=== PATIENT | male | born 1965 | race African-American/Black ===

== ENCOUNTER 2017-04-14 19:11 | Emergency (ER) | payer OTHER ==
[2017-04-14 20:26] LABS: INFLUENZA A PATIENT NEGATIVE (NEGATIVE); INFLUENZA B PATIENT NEGATIVE (NEGATIVE); OBC FLU VALID
[2017-04-14 21:21] LABS: POC GLUCOSE 123 mg/dL (70-99)
== END 2017-04-14 21:33 | disposition home or self-care (01) ==
LOC: ER 19:11
DX: J20.9 Acute bronchitis, unspecified (principal); E11.9 Type 2 diabetes mellitus without complications; F17.200 Nicotine dependence, unspecified, uncomplicated
CPT/HCPCS: 71046; 82962; 87804; 87804-59; 99285-25

== ENCOUNTER 2020-12-12 11:38 | Emergency (ER) | payer OTHER ==
[~2020-12-12] VITALS: Ht 170.2 cm; Wt 86.7 kg
[~2020-12-12 11:38] MED LIST: BENZ100C PO; PRED50TA PO; PROAIR RESPICL90 MCG IH
[2020-12-12] MEDS ORDERED: ASPIRIN CHEWABLE 81 MG TABLET. PO ONE (12:00)
[2020-12-12] MEDS ORDERED: IV NORMAL SALINE 1000ML BAG 1,000 ML IV SCH (12:00)
[2020-12-12 12:21] LABS: BASO % 0 % (0-3); EOS # 0.1 x10^3/uL (0.0-0.7); EOS % 1 % (0-3); HEMATOCRIT 38.7 % (39.0-53.0); HEMOGLOBIN 13.7 g/dL (13.0-17.5); LYMPH # 3.4 x10^3/uL (1.0-4.8); LYMPH % 37 % (24-48); MEAN CORPUSCULAR HEMOGLOBIN 30 pg (25-35); MEAN CORPUSCULAR HGB CONC 36 g/dL (31-37); MEAN CORPUSCULAR VOLUME 85 fL (79-100); MONO # 0.6 x10^3/uL (0.0-1.1); MONO % 7 % (0-9); NEUT # 5.1 x10^3/uL (1.8-7.7); NEUT % 55 % (31-73); PLATELET COUNT 260 x10^3/uL (140-400); RED BLOOD COUNT 4.54 x10^6/uL (4.30-5.70); WHITE BLOOD COUNT 9.3 x10^3/uL (4.0-11.0)
--- NOTE | 2020-12-12 12:27 | EKG ---
[facility] [address] [place] [address] Test Date: 2020-12-12 Test Time: 11:49:53 Pat Name: KWESI BURNETT Department: Room: Gender: Corporate Accountant: : 1965 Requested By: LEANDRA BEST Order Number: [id number] Reading MD: Measurements Intervals [place] Rate: 56 P: 49 RI: 150 QRS: 29 QRSD: 88 T: 34 QT: 396 QTc: 384 Interpretive Statements SINUS RHYTHM OTHERWISE NORMAL ECG RI6.02 No previous ECG available for comparison
--- NOTE | 2020-12-12 12:28 | RAD ---
XR CHEST 1V History: Reason: soa / Spl. Instructions: / History: Comparison: April 14, 2017 Findings: No consolidation or pleural effusion. Normal heart size. No pneumothorax. Prior granulomatous disease within the chest. Impression: 1. No acute cardiopulmonary process. Electronically signed by: Charles Verduzco DO (12/12/2020 12:25 PM) [id number]
[2020-12-12 12:29] LABS: CALCIUM 8.7 mg/dL (8.5-10.1); CREATININE 0.8 mg/dL (0.7-1.3); GFR 122.4; POTASSIUM 3.8 mmol/L (3.5-5.1)
--- NOTE | 2020-12-12 12:32 | PHYS DOC ---
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 He states that his doctor told him that the tingling in his left arm that comes and states that is from him putting his left arm up on the window sill of the truck. Patient is fully vaccinated for Covid. He has a history of diabetes, hypertension smoking. He does take a baby aspirin every day. He denies syncope, chest pain, abdominal pain, nausea, v omiting, diarrhea, fever, cough, focal weakness, vision change. (LEANDRA BEST SPRAY UNIT FEEDER) Review of Systems: Review of Systems: Constitutional: Denies fever or chills. [] Eyes: Denies change in visual acuity. [] HENT: Denies nasal congestion or sore throat. [] Respiratory: Denies cough or + Intermittent shortness of breath. [] Cardiovascular: Denies chest pain or edema. [] GI: Denies abdominal pain, nausea, vomiting, bloody stools or diarrhea. [] : Denies dysuria. [] Musculoskeletal: Denies back pain or joint pain. [] Integument: Denies rash. [] Neurologic: Denies headache, focal weakness or +intermittent left arm sensory changes. +intermittent dizziness [] Endocrine: Denies polyuria or polydipsia. [] Lymphatic: Denies swollen glands. [] Psychiatric: Denies depression or anxiety. [] (LEANDRA BEST SPRAY UNIT FEEDER) Heart Score: C/O Chest Pain: No HEART Score for Chest Pain: HEART Score for Chest Pain Response (Comments) Value History Slighlty/Non-Suspicious 0 ECG Normal 0 Age >45 - < 65 1 Risk Factors 1 or 2 Risk Factors 1 Troponin < Normal Limit 0 Total 2 Risk Factors: Risk Factors: DM, Current or recent (<one month) smoker, HTN, HLP, family history of CAD, obesity. Risk Scores: Score 0 - 3: 2.5% MACE over next 6 weeks - Discharge Home Score 4 - 6: 20.3% MACE over next 6 weeks - Admit for Clinical Observation Score 7 - 10: 72.7% MACE over next 6 weeks - Early Invasive Strategies (LEANDRA BEST APRN) Current Medications: Current Medications Medications (Trade) Dose Ordered Sig/Erick Start Time Stop Time Status Last Admin Dose Admin Aspirin (Aspirin Chewable) 324 mg 1X ONCE 12/12/20 12:00 12/12/20 12:01 DC Sodium Chloride 1,000 ml @ 1,000 mls/hr Q1H 12/12/20 12:00 12/12/20 12:59 (LEANDRA BEST APRN) Allergies: Allergies: Allergies Coded Allergies Type Severity Reaction Last Updated Verified No Known Drug Allergies 12/12/20 No (LEANDRA BEST APRN) Physical Exam: PE: Constitutional: Well developed, well nourished, no acute distress, non-toxic appearance. [] HENT: Normocephalic, atraumatic, bilateral external ears normal, oropharynx moist, no oral exudates, nose normal. [] Eyes: PERRLA, EOMI, conjunctiva normal, no discharge. [] Neck: Normal range of motion, no tenderness, supple, no stridor. [] Cardiovascular:Heart rate regular rhythm, no murmur [] Lungs & Thorax: Bilateral breath sounds clear to auscultation [] Abdomen: Bowel sounds normal, soft, no tenderness, no masses, no pulsatile masses. [] Skin: Warm, dry, no erythema, no rash. [] Back: No tenderness, no CVA tenderness. [] Extremities: No tenderness, no cyanosis, no clubbing, ROM intact, no edema. [] Neurologic: Alert and oriented X 3, normal motor function, normal sensory function, no focal deficits noted. [] Psychologic: Affect normal, judgement normal, mood normal. [] Normal physical exam (LEANDRA BEST APRN) Current Patient Data: Labs: Laboratory Tests Test 12/12/20 11:57 Glucose (Fingerstick) 117 mg/dL (70-99) H Vital Signs: Vital Signs Date Time Temp Pulse Resp B/P (MAP) Pulse Ox O2 Delivery O2 Flow Rate FiO2 12/12/20 11:41 98.3 65 16 140/85 (103) 98 Room Air 98.3 (LEANDRA BEST APRN) EKG: EK and read by Dr. Teague is sinus rhythm and no STEMI [address] Teague as sinus rhythm and no STEMI (LEANDRA BEST APRN) Radiology/Procedures: Radiology/Procedures: [] Impression: [place] [id number] IMAGING REPORT Signed PATIENT: KWESI BURNETT ACCOUNT: [id number] : 1965 LOCATION: ER AGE: 55 SEX: M EXAM STATUS: REG ER ORD. PHYSICIAN: LEANDRA BEST APRN REASON: soa PROCEDURE: PORTABLE CHEST 1V XR CHEST 1V History: Reason: soa / Spl. Instructions: / History: Comparison: April 14, 2017 Findings: No consolidation or pleural effusion. Normal heart size. No pneumothorax. Prior granulomatous disease within the chest. Impression: 1. No acute cardiopulmonary process. Electronically signed by: Charles Verduzco DO (12/12/2020 12:25 PM) [id number] DICTATED and SIGNED BY: CHARLES VERDUZCO DO DATE: 12/12/20 [id number] [place] [id number] IMAGING REPORT Signed PATIENT: KWESI BURNETT ACCOUNT: [id number] : 1965 LOCATION: ER AGE: 55 SEX: M EXAM STATUS: REG ER ORD. PHYSICIAN: LEANDRA BEST APRN REASON: dizziness PROCEDURE: CT HEAD WO CONTRAST CT HEAD/BRAIN WO History: Reason: dizziness / Spl. Instructions: / History: Comparison: None. Technique: Noncontrast CT imaging was performed of the head. Exposure: One or more of the following individualized dose reduction techniques were utilized for this examination: 1. Automated exposure control 2. Adjustment of the mA and/or kV according to patient size 3. Use of iterative reconstruction technique. Findings: No intracranial hemorrhage. No mass effect. No hydrocephalus. Right lateral scalp soft tissue injury. Imaged orbits are unremarkable. Imaged paranasal sinuses and mastoid air cells are clear. No acute calvarial fracture. Impression: 1. No acute intracranial abnormality. Electronically signed by: Charles Verduzco DO (12/12/2020 1:08 PM) [id number] DICTATED and SIGNED BY: CHARLES VERDUZCO DO DATE: 12/12/20 [id number] (LEANDRA BEST APRN) Course & Med Decision Making: Course & Med Decision Making Pertinent Labs and Imaging studies reviewed. (See chart for details) COVID-19 CRITERIA: The patient was evaluated during the global COVID-19 pandemic, and that diagnosis was suspected/considered upon their initial presentation. Their evaluation, treatment and testing was consistent with curr ent guidelines for patients who present with complaints or symptoms that may be related to COVID-19. See HPI. Alert and oriented x4. Ambulatory steady gait. Speaks in full clear sentences. Skin pink warm and dry. No extremity edema. Lab signs are within normal limits. Lungs are clear to auscultation all lobes. No joint laxity or swelling. Full range of motion and strength in all extremities. Full sensations. Radial pulse strong and present. Cap refill less than 2 seconds. Chest x-ray, CT of head showed no acute findings. He denies having ever hit his head. Blood work is unremarkable. Heart score is only 2. Rapid Covid is negative. [] (LEANDRA BEST APRN) Course & Med Decision Making I have reviewed and was available for consultation in the emergency department for this patient that was seen by midlevel provider. Agree with plan. Alan Teague DO (ALAN TEAGUE DO) Leanne Disclaimer: Leanne Disclaimer: This electronic medical record was generated, in whole or in part, using a voice recognition dictation system. (LEANDRA BEST APRN) NIHSS Stroke Scale NIH Stroke Scale: NIH Stroke Scale Response (Comments) Value Level of Consciousness: 0 Alert/Responsive 0 LOC Questions: 0 Answers both correctly 0 LOC Commands: 0 Performs both tasks 0 Best Gaze: 0 Normal 0 Visual: 0 No visual loss 0 Facial Palsy: 0 Normal, symmetrical 0 Motor - Left Arm 0 No drift 0 Motor - Right Arm 0 No drift 0 Motor - Left Leg 0 No drift 0 Motor: Right Leg 0 No drift 0 Limb Ataxia: 0 Absent 0 Sensory: 0 No loss 0 Best Language: 0 Normal 0 Dysathria: 0 Normal 0 Extinction and Inattention: 0 Normal 0 Total 0 COVID-19 Patient Risks: Age 65 or older: No Sign of co-morbidity: Yes Exp to person + for COVID: No Travel from affected area: Yes Lower respiratory symptoms: Yes Fever: No Other: No (LEANDRA BEST APRN) PPE Use: Full PPE with N95 mask or PAPR: Yes (LEANDRA BEST APRN) Departure Departure Impression: Primary Impression: Shortness of breath Additional Impression: Neuropathy, arm Qualified Codes: G56.92 - Unspecified mononeuropathy of left upper limb Disposition: HOME / SELF CARE / HOMELESS Condition: STABLE Referrals: UNKNOWN PCP NAME (PCP) Patient Instructions: Asthma, Adult, Ulnar Nerve Contusion with Rehab[facility] Additional Instructions: Drink plenty of fluids. Stop smoking. Continue taking all medication. Try not to set your arm up on window sill of your truck when driving. Try using lidocaine patches to the area of pain to the arm. Scripts Lidocaine (Lidocaine PATCH ) 1 Each Adh..patch 1 EACH TP DAILY for FOR LOCAL PAIN, #1 PATCH REMOVE AFTER 12 HOURS Prov: LEANDRA BEST APRN 12/12/20 Albuterol Sulfate (PROAIR HFA INHALER) 8.5 Gm Hfa.aer.ad 1 PUFF INH PRN Q6HRS PRN for SHORTNESS OF BREATH, #1 EACH 0 Refills Prov: LEANDRA BEST APRN 12/12/20 LEANDRA BEST APRN Dec 12, 2020 12:32 ALAN TEAGUE DO Dec 12, 2020 13:45
[2020-12-12 12:35] LABS: ALBUMIN 3.7 g/dL (3.4-5.0); ALBUMIN/GLOBULIN RATIO 1.1 (1.0-1.7); MAGNESIUM 1.8 mg/dL (1.8-2.4); TOTAL BILIRUBIN 0.6 mg/dL (0.2-1.0); TOTAL PROTEIN 7.2 g/dL (6.4-8.2)
--- NOTE | 2020-12-12 13:10 | RAD ---
CT HEAD/BRAIN WO History: Reason: dizziness / Spl. Instructions: / History: Comparison: None. Technique: Noncontrast CT imaging was performed of the head. Exposure: One or more of the following individualized dose reduction techniques were utilized for thi s examination: 1. Automated exposure control 2. Adjustment of the mA and/or kV according to patient size 3. Use of iterative reconstruction technique. Findings: No intracranial hemorrhage. No mass effect. No hydrocephalus. Right lateral scalp soft tissue injury. Imaged orbits are unremarkable. Imaged paranasal sinuses and mastoid air cells are clear. No acute ca lvarial fracture. Impression: 1. No acute intracranial abnormality. Electronically signed by: Charles Verduzco DO (12/12/2020 1:08 PM) [id number]
[2020-12-12] MEDS ORDERED: ALBU2.5V8 INH (13:24)
[2020-12-12] MEDS ORDERED: LIDO700A21 TP (13:24)
[2020-12-12 14:08] LABS: BILIRUBIN,URINE NEGATIVE (NEG); CLARITY,URINE CLEAR; COLOR,URINE YELLOW; NITRITE,URINE NEGATIVE (NEG); PROTEIN,URINE NEGATIVE (NEG-TRACE); UROBILINOGEN,URINE 0.2 mg/dL (0.2 mg/dL)
--- NOTE | 2020-12-12 14:08 | EKG ---
[facility] [address] [place] [address] Test Date: 2020-12-12 Test Time: 12:33:15 Pat Name: KWESI BURNETT Department: Room: Gender: Budget Controller: : 1965 Requested By: LEANDRA BEST Order Number: [id number] Reading MD: Measurements Intervals [place] Rate: 54 P: 52 RI: 158 QRS: 33 QRSD: 88 T: 53 QT: 412 QTc: 392 Interpretive Statements SINUS RHYTHM NO SPECIFIC ECG ABNORMALITIES RI6.01 No previous ECG available for comparison
[2020-12-12 14:14] LABS: BARBITURATES NEG (NEG); BENZODIAZEPINES NEG (NEG); CANNABINOIDS NEG (NEG); COCAINE NEG (NEG); METHADONE NEG (NEG); OPIATES NEG (NEG); PHENCYCLIDINE NEG (NEG)
[2020-12-12 14:15] LABS: AMPHETAMINE/METHAMPHETAMINE NEG (NEG)
[2020-12-12 14:16] VITALS: BP 122/66
[2020-12-12 14:39] LABS: BACTERIA,URINE 0 /HPF (0-FEW); RBC,URINE 0 /HPF (0-2)
--- NOTE | 2020-12-13 15:58 | NUR ---
IP: Attempted to contact pt concerning covid results. No answer, left a voicemail to return then call.
--- NOTE | 2020-12-15 15:20 | NUR ---
IP: Informed pt of negative covid test. Pt verbalized understanding.
== END 2020-12-12 15:01 | disposition home or self-care (01) ==
LOC: ER 11:38
DX: R06.02 Shortness of breath (principal); E11.40 Type 2 diabetes mellitus with diabetic neuropathy, unspecified; F17.200 Nicotine dependence, unspecified, uncomplicated
CPT/HCPCS: 36415; 70450; 71045; 80053; 80307; 81001; 82962; 83690; 83735; 83880; 84484; 85025; 85379; 87086; 87426; 93005; 96360; 96361; 99285; J7030; U0003; U0005